=== PATIENT | female | born 1985 | race Caucasian/White ===

== ENCOUNTER 2020-04-08 14:57 | Emergency (ER) | payer SELFPAY ==
--- NOTE | 2020-04-08 15:24 | ER Document Report ---
ED Medical Screen (RME) - General Chief Complaint: Vag Bleeding, +preg <12wks Stated Complaint: ABDOMINAL PAIN,VAGINAL BLEEDING Time Seen by Provider: 04/08/20 15:17 Primary Care Provider: JESUS CORTES MD [Primary Care Provider] - Follow up as needed Mode of Arrival: Ambulatory Information source: Patient Notes: 35-year-old female presented to ED for complaint of vaginal bleeding. She states she found out from a home test in February that she was . She is from [place] and is here visiting. She states on March 11 she had a large blood clot and then the bleeding stopped and has had no bleeding since then and then this morning she started with some brown discharge and low back pain. She states she has been having positive test since February but because of this discharge and pain she came to the emergency room to get evaluated. She states she has had no care since doing the home test on February. She states she is 8 para 1 and 1 child she has was born very premature. I have greeted and performed a rapid initial assessment of this patient. A comprehensive ED assessment and evaluation of the patient, analysis of test results and completion of medical decision making process will be conducted by an additional ED providers. Physical Exam - Vital signs Vitals: Temp Pulse Resp BP Pulse Ox 97.3 F 92 18 146/84 H 98 04/08/20 15:02 04/08/20 15:02 04/08/20 15:02 04/08/20 15:02 04/08/20 15:02 Course - Vital Signs Vital signs: Temp Pulse Resp BP Pulse Ox 97.3 F 92 18 146/84 H 98 04/08/20 15:02 04/08/20 15:02 04/08/20 15:02 04/08/20 15:02 04/08/20 15:02 Doctor's Discharge - Discharge Referrals: JESUS CORTES MD [Primary Care Provider] - Follow up as needed
[2020-04-08 15:58] LABS: HEMATOCRIT 34.2 % (36.0-47.0); HEMOGLOBIN 10.9 g/dL (12.0-15.5); MEAN CORPUSCULAR HEMOGLOBIN 24.3 pg (27.0-33.4); MEAN CORPUSCULAR HGB CONC 31.8 g/dL (32.0-36.0); MEAN CORPUSCULAR VOLUME 77 fl (80-97); PLATELET COUNT 407 10^3/uL (150-450); RED BLOOD COUNT 4.47 10^6/uL (3.72-5.28); WHITE BLOOD COUNT 8.9 10^3/uL (4.0-10.5)
[2020-04-08 16:01] LABS: APPEARANCE,URINE SLIGHTLY-CLOUDY; BILIRUBIN,URINE NEGATIVE (NEGATIVE); COLOR,URINE YELLOW; GLUCOSE, URINE NEGATIVE (NEGATIVE); KETONES,URINE NEGATIVE (NEGATIVE); LEUKOCYTE ESTERASE,URINE TRACE (NEGATIVE); NITRITE,URINE POSITIVE (NEGATIVE); PROTEIN,URINE 30 mg/dL (NEGATIVE); URINE SPECIFIC GRAVITY 1.034; UROBILINOGEN,URINE NEGATIVE mg/dL (<2.0)
--- NOTE | 2020-04-08 16:12 | RADIOLOGY REPORT (SQ) ---
EXAM DESCRIPTION: U/S OB 14+ TRNABD 1GES W/O DOP IMAGES COMPLETED DATE/TIME: 04/08/2020 4:02 pm REASON FOR STUDY: She triage note vaginal bleeding COMPARISON: None. TECHNIQUE: Transabdominal static and realtime grayscale images acquired of the pelvis. Additional se lected spectral and color Doppler images recorded. All images stored on PACs. bHCG: Not available. CLINICAL DATES: 10 week 3 day. LIMITATIONS: None. FINDINGS: FETUS: Single Living intrauterine . ULTRASOUND EGA: 9 week 3 day. ULTRASOUND ZULAY: 11/08/2020. EFW: Not applicable less than 20 weeks. CRL: 2.66 cm. FHR: 150 beats per minute. SURVEY: No visualized anomalies. AMNIOTIC FLUID: Adequate amount. PLACENTA: Not yet developed due to early gestation. SUBCHORIONIC BLEED: No. SIZE OF BLEED: Not applicable. UTERUS: No masses. Possible arcuate uterus with on the left side. CERVICAL LENGTH: 2.3 cm. Closed. RIGHT ADNEXA: Normal ovary with normal vascular flow. No adnexal free fluid. No adnexal masses. LEFT ADNEXA: Normal ovary with normal vascular flow. No adnexal free fluid. No adnexal masses. FREE FLUID: None. OTHER: No other significant finding. IMPRESSION: LIVING INTRAUTERINE . POSSIBLE ARCUATE UTERUS WITH ON THE LEFT SIDE. EGA 9 WEEK 3 DAY. Trimester of : First trimester - 0 to 13 weeks. TECHNICAL DOCUMENTATION: JOB ID: [id number] [employer]- All Rights Reserved rev Reading location - IP/workstation name: [email or web address]
[2020-04-08 16:16] LABS: ABSOLUTE LYMPHOCYTES# (MANUAL) 2.7 10^3/uL (0.5-4.7); ABSOLUTE MONOCYTES # (MANUAL) 0.7 10^3/uL (0.1-1.4); BASOPHILS % (MANUAL) 2 % (0-2); EOSINOPHILS % (MANUAL) 7 % (0-6); LYMPHOCYTES % (MANUAL) 28 % (13-45); MONOCYTES % (MANUAL) 8 % (3-13); SEGMENTED NEUTROPHILS % (MAN) 53 % (42-78); TOTAL CELLS COUNTED 100
[2020-04-08 16:19] LABS: ALBUMIN 3.6 g/dL (3.5-5.0); ALKALINE PHOSPHATASE 72 U/L (38-126); ANION GAP 9 (5-19); ASPARTATE AMINO TRANSFERASE 19 U/L (14-36); BILIRUBIN,DIRECT 0.2 mg/dL (0.0-0.4); BILIRUBIN,TOTAL 0.3 mg/dL (0.2-1.3); BLOOD UREA NITROGEN 10 mg/dL (7-20); CALCIUM 9.5 mg/dL (8.4-10.2); CARBON DIOXIDE 18 mmol/L (22-30); CHLORIDE 111 mmol/L (98-107); GLUCOSE 100 mg/dL (75-110); POTASSIUM 4.1 mmol/L (3.6-5.0); TOTAL PROTEIN 6.4 g/dL (6.3-8.2)
[2020-04-08 16:20] LABS: ANISOCYTOSIS 2+; HYPOCHROMASIA 1+; OVALOCYTES SLIGHT; PLATELET COMMENT ADEQUATE; POIKILOCYTOSIS SLIGHT; POLYCHROMASIA SLIGHT
--- NOTE | 2020-04-08 18:45 | ER Document Report ---
ED General - General Chief Complaint: Vag Bleeding, +preg <12wks Stated Complaint: ABDOMINAL PAIN,VAGINAL BLEEDING Time Seen by Provider: 04/08/20 15:17 Primary Care Provider: JESUS CORTES MD [Primary Care Provider] - Follow up as needed Mode of Arrival: Ambulatory - [facility] Notes: 35-year-old female G8, P1 presents to the emergency room today for evaluation for vaginal bleeding that started today with having a vaginal blood clot. Patient states she is just passing through she is going back to [place] tomorrow. Patient states she did have positive test in February but then she had a vaginal bleeding, she assumed that she miscarried. Patient states she has miscarried her last 7 pregnancies so she assumed that she already miscarried. Patient is unsure of her last menstrual cycle. Is not taking any control. Patient is not taking any vitamins. Denies fevers, chills, chest pain,palpitations, shortness of breath, dyspnea, nausea, vomiting, diarrhea, abdominal pain, hematuria,blurred vision, double vision, loss of vision, speech changes, LH, dizziness, syncope, headaches, wheezing, ST, URI, neck pain, weakness, bowel or bladder dysfunction, saddle anesthesia, numbness or tingling in bilateral upper or lower extremities equally, muscle paralysis, weakness in bilateral upper or lower extremities equally or rash. Denies IV drug use. Past Medical History - General Information source: Patient - Social History Smoking Status: Unknown if Ever Smoked Family History: Reviewed & Not Pertinent Review of Systems - Review of Systems Constitutional: No symptoms reported EENT: No symptoms reported Cardiovascular: No symptoms reported Respiratory: No symptoms reported Gastrointestinal: No symptoms reported Genitourinary: No symptoms reported Female Genitourinary: See HPI Musculoskeletal: No symptoms reported Skin: No symptoms reported Hematologic/Lymphatic: No symptoms reported Neurological/Psychological: No symptoms reported Physical Exam - Vital signs Vitals: Temp Pulse Resp BP Pulse Ox 97.3 F 92 18 146/84 H 98 04/08/20 15:02 04/08/20 15:02 04/08/20 15:02 04/08/20 15:02 04/08/20 15:02 - Notes Notes: MEDICATIONS: I agree with the patient medications as charted by the RN. ALLERGIES: I agree with the allergies as charted by the RN. PAST MEDICAL HISTORY/PAST SURGICAL HISTORY: Reviewed and agree as charted by RN. SOCIAL HISTORY: Reviewed and agree as charted by RN. FAMILY HISTORY: No significant familial comorbid conditions directly related to patient complaint EXAM: Reviewed vital signs as charted by RN. PHYSICAL EXAMINATION: reviewed vital signs by RN GENERAL: Well-appearing, well-nourished and in no acute distress. HEAD: Atraumatic, normocephalic. EYES: Pupils equal round and reactive to light, extraocular movements intact, conjunctiva are normal. ENT: Nares patent, oropharynx clear without exudates. Moist mucous membranes. NECK: Normal range of motion, supple without lymphadenopathy LUNGS: Breath sounds clear to auscultation bilaterally and equal. No wheezes rales or rhonchi. HEART: Regular rate and rhythm without murmurs ABDOMEN: Soft, nontender, nondistended abdomen. No guarding, no rebound. No masses appreciated. No CVA tenderness appreciated bilaterally Female : External genitalia without erythema, exudate or discharge. Vaginal vault is without discharge. Cervix is of normal color without lesion. Uterus is noted to be of normal size and nontender. No cervical motion tenderness is seen. No masses are palpated. No blood in the vaginal vault without clots, os closed, no adnexal tenderness or mass Musculoskeletal: Normal range of motion, no pitting or edema. No cyanosis. NEUROLOGICAL: Cranial nerves grossly intact. Normal speech, normal gait. Normal sensory, motor exams PSYCH: Normal mood, normal affect. SKIN: Warm, Dry, normal turgor, no rashes or lesions noted. Course - Re-evaluation Re-evalutation: 04/08/20 19:03 Obstetric ultrasound shows a heart rate of 150, anterior uterine with possible arcuate uterus with on the left side 9 weeks and 3 days. hCG 42,888. CBC negative for leukocytosis or anemia, CMP negative for hepatic or renal dysfunction. Urinalysis does show leukesterase, positive for nitrates, hematuria and proteinuria. Urine culture pending. We will start patient on outpatient antibiotic therapy twice a day for 10 days. Also advised patient to start vitamins. Advised to follow-up with [facility], health department or emergency room in 48 hours for repeat hCG and obstetric ultrasound to ensure she is not miscarrying. Patient and her significant other verbalized understanding of this plan of care and agree with plan of care. wet [place] and GC pending. Will call with results. After performing a Medical Screening Examination, I estimate there is LOW risk for ACUTE APPENDICITIS, BOWEL OBSTRUCTION, ACUTE CHOLECYSTITIS, PERFORATED DIVERTICULITIS, INCARCERATED HERNIA, PANCREATITIS, PELVIC INFLAMMATORY DISEASE, PERFORATED ULCER, ECTOPIC , or TUBO- OVARIAN ABSCESS, thus I consider the discharge disposition reasonable. Also, there is no evidence or peritonitis, sepsis, or toxicity. I have reevaluated this patient multiple times and no significant life threatening changes are noted. The patient and I have discussed the diagnosis and risks, and we agree with discharging home with close follow-up with the understanding that symptoms and presentations can change. We also discussed returning to the Emergency Department immediately if new or worsening symptoms occur. We have discussed the symptoms which are most concerning (e.g., bloody stool, fever, changing or worsening pain, vomiting) that necessitate immediate return. 04/08/20 19:46 - Vital Signs Vital signs: Temp Pulse Resp BP Pulse Ox 97.3 F 92 18 146/84 H 98 04/08/20 15:02 04/08/20 15:02 04/08/20 15:02 04/08/20 15:02 04/08/20 15:02 - Laboratory Result Diagrams: 04/08/20 15:30 04/08/20 15:30 Laboratory results interpreted by me: 04/08/20 04/08/20 04/08/20 15:30 15:30 15:30 Hgb 10.9 L Hct 34.2 L MCV 77 L MCH 24.3 L MCHC 31.8 L RDW 19.0 H Eosinophils % (Manual) 7 H Chloride 111 H Carbon Dioxide 18 L Creatinine 0.49 L Beta HCG, Quant 55434.00 H Urine Protein 30 H Urine Blood LARGE H Urine Nitrite POSITIVE H Ur Leukocyte Esterase TRACE H Discharge - Discharge Clinical Impression: , UTI (urinary tract infection) Condition: Stable Disposition: HOME, SELF-CARE Instructions: Nitrofurantoin ([facility]), Urinary Tract Infection ([facility]), ([facility]) Additional Instructions: You have an intrauterine . Your hCG is normal. Please follow-up with an [facility] within the next 48 hours for repeat hCG and ultrasound. if you experience any worsening symptoms please return to the emergency room. You do have a UTI that we will be treating you for. Please take antibiotics twice a day as directed. Please start taking prenatals. Please avoid any drugs or illicit drug use any alcohol consumption. Return immediately for any new or worsening symptoms. Follow up with primary care provider, call tomorrow to make followup appointment. Prescriptions: Nitrofurantoin Monohyd/M-Cryst [Macrobid 100 mg Capsule] 100 mg PO BID #20 cap Vits96/Iron Fum/Folic [ Tablet] 1 each PO DAILY #20 tablet Referrals: JESUS CORTES MD [Primary Care Provider] - Follow up as needed WESTON RIVERS MD [ACTIVE STAFF] - Follow up as needed
[2020-04-08 19:23] LABS: EPITHELIALS (WET MOUNT) 3+ EPITHELIALS SEEN; RBCS (WET MOUNT) 2+ RBCS SEEN; T.VAGINALIS (WET MOUNT) NO TRICHOMONAS SEEN; WBCS (WET MOUNT) 3+ WBCS SEEN; YEAST (WET MOUNT) NO YEAST SEEN
[2020-04-08 20:13] VITALS: BP 137/76
[2020-04-08 20:43] LABS: CHLAM PCR NOT DETECTED (NOT DETECT)
== END 2020-04-08 20:12 | disposition home or self-care (01) ==
LOC: ER 14:57
DX: O23.41 Unspecified infection of urinary tract in pregnancy, first trimester (principal); R31.9 Hematuria, unspecified; O20.9 Hemorrhage in early pregnancy, unspecified; Z3A.09 9 weeks gestation of pregnancy; Z87.59 Personal history of other complications of pregnancy, childbirth and the puerperium
CPT/HCPCS: 36415; 76805; 80053; 81001; 84702; 85025; 86900; 86901; 87210; 87491; 87591; 99284